=== PATIENT | male | born 1980 | race Caucasian/White ===

== ENCOUNTER 2023-02-14 19:00 | Inpatient (IN) | payer OTHER ==
[2023-02-14 19:15] VITALS: BMI 22.4
[2023-02-14] MEDS ORDERED: ONDANSETRON 4 MG/2 ML VIAL IVPB ONE (20:22)
[2023-02-14] MEDS ORDERED: SODIUM CHLORIDE 0.9% 500 ML INFUS.BAG IV ONE (20:22)
[2023-02-14] MEDS ORDERED: ACETAMINOPHEN 1000 MG/100 ML BAG IVPB ONE (20:23)
[2023-02-14] MEDS ORDERED: ACETAMINOPHEN INJECTION 100 ML IVPB ONE (20:41)
[2023-02-14] MEDS ORDERED: ONDANSETRON 4 MG/2 ML VIAL ONE (20:41)
[2023-02-14 20:55] LABS: VENOUS O2 SATURATION 62.5 % (70-80); VENOUS PCO2 63.5 mmHg (38-52); VENOUS PH 7.342 (7.310-7.410)
[2023-02-14 21:32] LABS: CALCIUM 8.4 mg/dL (8.5-10.1)
[2023-02-14 21:33] LABS: ALBUMIN 2.8 g/dl (3.4-5.0)
[2023-02-14 21:35] LABS: CREATININE 0.8 mg/dL (0.55-1.3)
[2023-02-14 21:37] LABS: BILIRUBIN,TOTAL 0.4 mg/dL (0.2-1); TOT PROT 6.8 g/dl (6.4-8.2)
[2023-02-14 22:06] LABS: ACTIVATED PTT 32.2 SECONDS (25.2-36.5); INR 1.17 (0.83-1.09); PROTHROMBIN TIME (PATIENT) 13.5 SEC (9.7-13.0)
[2023-02-14 22:08] LABS: BASO % 0.2 % (0-2.0); EOS % 15.6 % (0-4.5); HEMATOCRIT 33.7 % (35.4-49); HEMOGLOBIN 11.3 GM/dL (11.7-16.9); MCHC 33.4 g/dl (32.0-35.9); MEAN CELL VOLUME 83.7 fl (80-96); MEAN PLT VOLUME 9.2 fl (7.5-11.1); MONO % 10.4 % (3.8-10.2); NEUT % 44.8 % (42.8-82.8); PLATELET COUNT 107 10^3/uL (134-434); RBC 4.02 M/mm3 (4.00-5.60); RDW 15.8 % (11.9-15.9); WHITE BLOOD COUNT 6.5 K/mm3 (4.0-10.0)
[2023-02-15] MEDS ORDERED: SODIUM CHLORIDE 0.9% 500 ML INFUS.BAG IV ONE (01:28)
[2023-02-15] MEDS: LACTATED RINGERS SOLUTION 1,000 ML IV SCH (02:37)
[2023-02-15] MEDS ORDERED: ACETAMINOPHEN 1000 MG/100 ML BAG IVPB PRN (04:00)
[2023-02-15] MEDS ORDERED: methaDONE HCL 10 MG TABLET PO ONE (06:00)
[2023-02-15] MEDS ORDERED: methaDONE HCL 40 MG DISPERSABLE TABLET ONE (06:09)
[2023-02-15] MEDS ORDERED: methaDONE HCL 10 MG TABLET ONE (06:10)
[2023-02-15 07:51] LABS: BASO % 0.3 % (0-2.0); EOS % 19.2 % (0-4.5); HEMATOCRIT 33.4 % (35.4-49); HEMOGLOBIN 11.3 GM/dL (11.7-16.9); LYMPH % 23.8 % (8-40); MCH 28.2 pg (25.7-33.7); MCHC 33.8 g/dl (32.0-35.9); MEAN CELL VOLUME 83.6 fl (80-96); MEAN PLT VOLUME 8.7 fl (7.5-11.1); MONO % 7.3 % (3.8-10.2); NEUT % 49.4 % (42.8-82.8); PLATELET COUNT 105 10^3/uL (134-434); RBC 3.99 M/mm3 (4.00-5.60); RDW 16.2 % (11.9-15.9)
[2023-02-15 08:19] LABS: ALBUMIN 2.6 g/dl (3.4-5.0); BLOOD UREA NITROGEN 14.5 mg/dL (7-18); MAGNESIUM 1.7 mg/dL (1.8-2.4)
[2023-02-15 08:22] LABS: CREATININE 0.8 mg/dL (0.55-1.3); PHOSPHOROUS 2.8 mg/dL (2.5-4.9)
[2023-02-15 08:23] LABS: BILIRUBIN,TOTAL 0.4 mg/dL (0.2-1); TOT PROT 6.2 g/dl (6.4-8.2)
[2023-02-15 09:24] LABS: PH,URINE 6.5 (5.0-8.0); URINE APPEARANCE CLEAR; URINE BILIRUBIN NEGATIVE (NEGATIVE); URINE COLOR YELLOW; URINE GLUCOSE (UA) NEGATIVE (NEGATIVE); URINE KETONE NEGATIVE (NEGATIVE)
[2023-02-15 09:25] LABS: URINE LEUK ESTERASE NEGATIVE (NEGATIVE); URINE NITRITE NEGATIVE (NEGATIVE); URINE PROTEIN NEGATIVE (NEGATIVE)
[2023-02-15] MEDS ORDERED: BICTEGRAV/EMTRICIT/TENOFOV (BIKTARVY) 50-200-25 MG TABLET PO SCH (10:00)
[2023-02-16] MEDS: LACTATED RINGERS SOLUTION 1,000 ML IV SCH (04:24)
[2023-02-16 06:16] VITALS: BP 141/72; PULSE 69; RESP 14
[2023-02-16 07:38] VITALS: TEMP 98
== END 2023-02-16 08:10 | disposition left against medical advice (07) | DRG 247 ==
LOC: JER 19:00 → JERBED 02-15 01:14
PROVIDERS: ADMIT Internal Medicine; ATTEND Internal Medicine
DX: K56.7 Ileus, unspecified (principal); F11.20 Opioid dependence, uncomplicated; R11.10 Vomiting, unspecified; Z21 Asymptomatic human immunodeficiency virus [HIV] infection status; F17.210 Nicotine dependence, cigarettes, uncomplicated; Z59.00 Homelessness unspecified; R19.7 Diarrhea, unspecified; D64.9 Anemia, unspecified; Z53.29 Procedure and treatment not carried out because of patient's decision for other reasons
CPT/HCPCS: 0241U-QW; 36415; 74019-TC-FY; 74177-TC; 80053; 81003; 82728; 82803; 82962; 83550; 83615; 83690; 83735; 84100; 84484; 85025; 85610; 85730; 86359; 86360; 87040; 87086; 87536; 93005; 93010; 99285-25; Q9967